=== PATIENT | male | born 1990 | race American Indian/Alaskan Native ===

== ENCOUNTER 2020-10-26 08:50 | Emergency (ER) | payer SELFPAY ==
[2020-10-26 09:36] VITALS: BP 127/89
--- NOTE | 2020-10-26 11:23 | Emergency Department Report ---
ED Back Pain/Injury HPI - General Chief Complaint: Extremity Injury, Lower Stated Complaint: BACK PAIN Source: patient Limitations: No Limitations - History of Present Illness Initial Comments: 30-year-old -[place] male presents to the emergency room stating he started having back pain last week and started getting worse on Monday. 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 He denies any urinary or bowel incontinent denies any trauma. Patient states that he took 2 Excedrin this morning and came in to be evaluated. Patient states that his back pain was a 10 prior to medication and now it is down to a 6. MD Complaint: back pain Onset/Timin -: days(s) Place: work Radiation: none Severity: severe (Prior to medication) Quality: aching Consistency: intermittent Improves With: immobilization Worsens With: movement Context: while lifting Associated Symptoms: denies other symptoms. denies: difficulty walking, difficulty urinating, incontinence, headaches, abdominal pain - Related Data Previous Rx's Medication Instructions Recorded Last Taken Type Naproxen [Naprosyn TAB] 500 mg PO BID PRN #20 tablet 10/26/20 Unknown Rx ED Review of Systems ROS: Stated complaint: BACK PAIN Other details as noted in HPI ED Past Medical Hx - Past Medical History Previous Medical History?: No - Surgical History Past Surgical History?: Yes Additional Surgical History: jaw surgery - Social History Smoking Status: Never Smoker - Medications Home Medications: Home Medications Medication Instructions Recorded Confirmed Last Taken Type Naproxen [Naprosyn TAB] 500 mg PO BID PRN #20 tablet 10/26/20 Unknown Rx ED Physical Exam - General Limitations: No Limitations General appearance: alert, in no apparent distress - Head Head exam: Present: atraumatic, normocephalic - Eye Eye exam: Present: normal appearance, PERRL - ENT ENT exam: Present: normal exam, normal external ear exam - Neck Neck exam: Present: normal inspection, full ROM - Respiratory Respiratory exam: Present: accessory muscle use - Cardiovascular Cardiovascular Exam: Present: regular rate - Extremities Exam Extremities exam: Present: normal inspection, full ROM - Back Exam Back exam: Present: full ROM, muscle spasm, paraspinal tenderness (Right side mid back). Absent: tenderness, vertebral tenderness, rash noted - Neurological Exam Neurological exam: Present: alert, oriented X3, normal gait - Psychiatric Psychiatric exam: Present: normal affect, normal mood - Skin Skin exam: Present: warm, dry, intact, normal color. Absent: rash ED Course Vital Signs 10/26/20 09:35 Temperature 98.6 F Pulse Rate 76 Respiratory 18 Rate Blood Pressure 127/89 [Right] O2 Sat by Pulse 100 Oximetry ED Medical Decision Making - Medical Decision Making 30-year-old -[place] male presents to the emergency room stating he started having back pain last week and started getting worse on Monday. 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 He denies any urinary or bowel incontinent denies any trauma. Patient states that he took 2 Excedrin this morning and came in to be evaluated. Patient states that his back pain was a 10 prior to medication and now it is down to a 6. The patient presents with acute back pain. The patient is now resting comfortably and feels better, is alert talkative interactive and in no distress. Repeat examination is unremarkable and benign. The patient is neurologically intact and is ambulatory in the ED. Patient has no fever, no bowel or bladder incontinence, no saddle anesthesia, and is otherwise alert and well-appearing. The history physical examination and diagnostic( if any) do not suggest the presence of acute spinal epidural abscess, acute spinal epidural bleed, cauda equina syndrome, abdominal aortic aneurysm, aortic dissection or other process requiring further testing, treatment or consultation in the emergency department. The vital signs have been stable. The patient's condition is st able and appropriate for discharge. The patient will pursue further outpatient evaluation with a primary care physician or other designated or consulting physician as indicated in the discharge instructions. Critical care attestation.: If time is entered above; I have spent that time in minutes in the direct care of this critically ill patient, excluding procedure time. ED Disposition Clinical Impression: Acute back pain less than 4 weeks duration Disposition: DC-01 TO HOME OR SELFCARE Is pt being admited?: No Does the pt Need Aspirin: No Condition: Stable Instructions: Acute Back Pain, Adult, Back Injury Prevention, [id number] Additional Instructions: Take pain medication as prescribed. You can use [id number] Voltaren gel or Voltaren patches. Be sure to drink plenty of fluids while taking medication. Follow-up with a primary care provider. Be sure to use proper protocol for lifting heavy boxes. Prescriptions: Naproxen [Naprosyn TAB] 500 mg PO BID PRN #20 tablet PRN Reason: Pain , Severe (7-10) Referrals: PRIMARY CARE, [Primary Care Provider] - 3-5 Days TEA TENORIO MD [Staff Physician] - 3-5 Days MARLENE SANTOS MD [Staff Physician] - 3-5 Days
== END 2020-10-26 11:32 | disposition home or self-care (01) ==
LOC: ED 08:50
DX: M54.9 Dorsalgia, unspecified (principal); Z98.890 Other specified postprocedural states; Z79.899 Other long term (current) drug therapy
CPT/HCPCS: 99281